=== PATIENT | female | born 1970 ===

== ENCOUNTER 2017-08-09 15:05 | Inpatient (IN) | payer OTHER ==
[~2017-08-09] VITALS: Ht 147.3 cm; Wt 57.2 kg
== END 2017-08-24 12:51 | disposition home or self-care (01) | DRG 330 ==
LOC: SURH 08-21 10:45 → SURG 08-22 08:36 → O/R 08-22 08:36 → SURG 08-22 13:24
PROVIDERS: Colon & Rectal Surgery
PROC: 0DT84ZZ Resection of Small Intestine, Percutaneous Endoscopic Approach (ICD-10-PCS; 2017-08-22)
PROC: 0DTE4ZZ Resection of Large Intestine, Percutaneous Endoscopic Approach (ICD-10-PCS; principal; 2017-08-22 14:00)
DX: N80.5 Endometriosis of intestine (principal); K56.51 Intestinal adhesions [bands], with partial obstruction

== ENCOUNTER 2018-09-27 09:36 | Day surgery (SDC) | payer OTHER | END 2018-09-27 16:00 | disposition home or self-care (01) | LOC: AMB-ENDOS 09:36 | DX: N80.5 Endometriosis of intestine (principal); K64.0 First degree hemorrhoids ==